=== PATIENT | female | born 1955 | race Caucasian/White ===

== ENCOUNTER → 2016-12-01 | Outpatient (REF) | payer OTHER | LOC: M LAB REF 16:38 | PROVIDERS: ATTEND Nurse Practitioner Women's Health | DX: N39.0 Urinary tract infection, site not specified (principal) ==

== ENCOUNTER 2017-08-05 06:42 | Day surgery (SDC) | payer OTHER ==
[2017-08-05] MEDS: NS 1,000 ML IV (07:00)
[2017-08-05] MEDS ORDERED: LIDOCAINE 2% INJ 100 MG/5 ML SDV (FOR ANES.) As Ordered (07:07)
[2017-08-05] MEDS ORDERED: PROPOFOL 200 MG/20 ML VIAL As Ordered ×2 (07:08)
== END 2017-08-05 08:28 | disposition home or self-care (01) ==
LOC: M OPP 06:42
DX: Z12.11 Encounter for screening for malignant neoplasm of colon (principal); Z80.0 Family history of malignant neoplasm of digestive organs; K57.30 Diverticulosis of large intestine without perforation or abscess without bleeding; K64.8 Other hemorrhoids; I10 Essential (primary) hypertension; E78.5 Hyperlipidemia, unspecified; E03.9 Hypothyroidism, unspecified; K59.00 Constipation, unspecified; K21.9 Gastro-esophageal reflux disease without esophagitis; M19.90 Unspecified osteoarthritis, unspecified site; M54.2 Cervicalgia; M79.7 Fibromyalgia; F32.9 Major depressive disorder, single episode, unspecified; F41.9 Anxiety disorder, unspecified; R51 Headache; R06.83 Snoring; Z79.899 Other long term (current) drug therapy; Z88.8 Allergy status to other drugs, medicaments and biological substances; Z80.3 Family history of malignant neoplasm of breast
CPT/HCPCS: G0105

== ENCOUNTER → 2022-03-15 | Outpatient (CLI) | payer MEDICARE, OTHER ==
[~2022-03-15] MED LIST: ABIL1TAB13 PO; ALLERPLEX; BETAFOOD PO; CYMB60CA4 PO; ESTR62CR PV; GARL1200 PO; GARL3CAP4 PO; GASTREX; GASTREX PO; GASTROGRAFIN SOLUTION 30ML As Ordered ONE; HYDR12CA PO; ISOVUE-370 76% 100ML VIAL As Ordered ONE; LACT20EL PO; LEVO25TA5 PO; LISI10TA22; LISI20TA33 PO; LISI40TA4 PO; METF-838 PO; METO1TAB32 PO; NORV5TAB PO; OMEG100011 PO; OMEP-173 PO; OSTE1TAB2 PO; PROBCAP14 PO; PROBCAP4 PO; RA T500C2 PO; ROSU10TA6 PO; ROSU5TAB5 PO; THERTAB52 PO; VITAD400CA FT; [UNRECOGNIZED DRUG - CODE] PO; [UNRECOGNIZED DRUG - OTHER]; antronex PO
== END ==
LOC: M RAD 12:18
PROVIDERS: ATTEND Specialist
DX: K44.0 Diaphragmatic hernia with obstruction, without gangrene (principal); C91.10 Chronic lymphocytic leukemia of B-cell type not having achieved remission; M51.37 Other intervertebral disc degeneration, lumbosacral region; R16.1 Splenomegaly, not elsewhere classified
CPT/HCPCS: 74177; Q9963; Q9967

== ENCOUNTER 2022-12-10 11:53 | Day surgery (SDC) | payer MEDICARE, OTHER ==
[~2022-12-10] VITALS: Ht 154.9 cm; Wt 84.8 kg
[~2022-12-10 11:53] MED LIST changes: +EZET10TA58 PO; -GASTROGRAFIN SOLUTION 30ML As Ordered ONE; +IMMUPLEX PO; -ISOVUE-370 76% 100ML VIAL As Ordered ONE; +NS 1,000 ML IV ONE; +PRAV40TA2 PO; +THYMEX PO; -VITAD400CA FT; +VITAD400CA PO; +[UNRECOGNIZED DRUG - CODE] PO; +[UNRECOGNIZED DRUG - OTHER] PO
[2022-12-10] MEDS ORDERED: GLYCOPYRROLATE INJ 0.2 MG/ML 2 ML VIAL As Ordered ONE (13:19)
[2022-12-10] MEDS ORDERED: fentaNYL 100 MCG/2 ML INJECTION As Ordered ONE (13:19)
[2022-12-10] MEDS ORDERED: LIDOCAINE 2% 100MG/5ML SDV (FOR ANES.) As Ordered ONE (13:19)
[2022-12-10] MEDS ORDERED: propofoL 200 MG/20 ML VIAL As Ordered ONE ×2 (13:19→13:36)
[2022-12-10 13:50] VITALS: TEMP 97.4
[2022-12-10 14:10] VITALS: BP 144/78; O2SAT 97
== END 2022-12-10 14:16 | disposition home or self-care (01) ==
LOC: M OPP 11:53
PROVIDERS: ATTEND Internal Medicine Gastroenterology
DX: K57.30 Diverticulosis of large intestine without perforation or abscess without bleeding (principal); K64.8 Other hemorrhoids; R19.4 Change in bowel habit; Z80.0 Family history of malignant neoplasm of digestive organs; R12 Heartburn; Z79.02 Long term (current) use of antithrombotics/antiplatelets; Z79.890 Hormone replacement therapy; Z79.899 Other long term (current) drug therapy; Z88.8 Allergy status to other drugs, medicaments and biological substances
CPT/HCPCS: 43239; 45378; 88305; J3010

== ENCOUNTER → 2023-01-05 | Outpatient (CLI) | payer MEDICARE, OTHER ==
[~2023-01-05] MED LIST changes: +GASTROGRAFIN SOLUTION 30ML As Ordered ONE; +ISOVUE-370 76% 100ML VIAL As Ordered ONE; -NS 1,000 ML IV ONE
== END ==
LOC: M RAD 12:06
PROVIDERS: ATTEND Internal Medicine Hematology & Oncology
DX: C91.00 Acute lymphoblastic leukemia not having achieved remission (principal)
CPT/HCPCS: 71260; 74177; Q9963; Q9967

== ENCOUNTER → 2023-01-26 | Outpatient (CLI) | payer MEDICARE, OTHER ==
[~2023-01-26] MED LIST changes: +ASPI81CH33 PO; +BEMP180T PO; -GASTROGRAFIN SOLUTION 30ML As Ordered ONE; -ISOVUE-370 76% 100ML VIAL As Ordered ONE; +LIDOCAINE 1% MDV 20ML VIAL As Ordered ONE; +[UNRECOGNIZED DRUG - CODE]
[2023-01-26 10:40] VITALS: TEMP 97.6
[2023-01-26 11:08] VITALS: BP 148/64; O2SAT 96
== END ==
LOC: M IRPRO 10:21
PROVIDERS: ATTEND Specialist
DX: E04.1 Nontoxic single thyroid nodule (principal)

== ENCOUNTER → 2023-12-12 | Outpatient (CLI) | payer MEDICARE, OTHER ==
[~2023-12-12] MED LIST changes: -LIDOCAINE 1% MDV 20ML VIAL As Ordered ONE; -ROSU10TA6 PO; +ROSU10TA61 PO; +ROSU5TAB40 PO; -ROSU5TAB5 PO; +[UNRECOGNIZED DRUG - CODE] PO
== END ==
LOC: M WHC 10:51
PROVIDERS: ATTEND Dietitian, Registered
DX: Z12.31 Encounter for screening mammogram for malignant neoplasm of breast (principal); R92.323 Mammographic fibroglandular density, bilateral breasts; R59.0 Localized enlarged lymph nodes

== ENCOUNTER → 2024-05-22 | Outpatient (CLI) | payer MEDICARE, OTHER ==
[~2024-05-22] MED LIST changes: +ISOVUE-370 76% 100ML VIAL As Ordered ONE; +OMEP40CA5; -ROSU5TAB40 PO; +ROSU5TAB49 PO
== END ==
LOC: M RAD 11:15
PROVIDERS: ATTEND Specialist
DX: C91.10 Chronic lymphocytic leukemia of B-cell type not having achieved remission (principal)
CPT/HCPCS: 71260; 74177; Q9967

== ENCOUNTER → 2024-06-20 | Outpatient (CLI) | payer MEDICARE, OTHER ==
[~2024-06-20] MED LIST changes: -ISOVUE-370 76% 100ML VIAL As Ordered ONE
[2024-06-20 09:55] LABS: CHOLESTEROL RISK RATIO 4.38 (<5); HDL CHOLESTEROL 36.7 MG/DL (>40); LDL CHOLESTEROL 95.5 MG/DL (<100); NON-HDL-C 124.3 MG/DL
== END ==
LOC: M LAB 08:41
PROVIDERS: ATTEND Physician Assistant
DX: E78.00 Pure hypercholesterolemia, unspecified (principal)

== ENCOUNTER → 2024-10-23 | Outpatient (REF) | payer MEDICARE, OTHER ==
[~2024-10-23] MED LIST changes: +ACAL100T PO; +ALLO100T PO; +B-12100010 PO; +CHLO125TA; +HYDR12.510 PO; -HYDR12CA PO; +LISI40TA10 PO; -LISI40TA4 PO; -PRAV40TA2 PO; +PRAV40TA85 PO; -RA T500C2 PO; +TURM500C10 PO
[2024-10-25 20:52] LABS: HPV APTIMA Not Detected (Not Detected)
== END ==
LOC: M SFHCWAGY 17:58
PROVIDERS: ATTEND Nurse Practitioner Family
DX: Z12.72 Encounter for screening for malignant neoplasm of vagina (principal); Z11.51 Encounter for screening for human papillomavirus (HPV)
CPT/HCPCS: 87624; G0123

== ENCOUNTER → 2024-11-14 | Outpatient (CLI) | payer MEDICARE, OTHER | LOC: M CARPUL 09:06 | PROVIDERS: ATTEND Physician Assistant | DX: I34.0 Nonrheumatic mitral (valve) insufficiency (principal); I36.1 Nonrheumatic tricuspid (valve) insufficiency ==

== ENCOUNTER 2025-01-12 09:18 | Inpatient (IN) | payer MEDICARE, OTHER ==
[~2025-01-12] VITALS: Ht 157.5 cm; Wt 81.6 kg
[~2025-01-12 09:18] MED LIST changes: +ATIV2TAB PO; +CARV12.5 PO; -CHLO125TA; +CHLO125TA PO; +LUNE1TAB8 PO; +PROC5TAB81 PO; -ROSU10TA61 PO; +ROSU10TA90 PO
[2025-01-12 11:00] LABS: OSMOLALITY SERUM 259 MOSM/KG (280-301)
[2025-01-12 11:04] LABS: ALT/SGPT 472 U/L (7.0-40); AST/SGOT 309 U/L (<34); CALCIUM LEVEL 8.6 MG/DL (8.3-10.6); CARBON DIOXIDE LEVEL 24 MMOL/L (20-31); CHLORIDE LEVEL 91 MMOL/L (98-107); CREATININE FOR GFR 0.56 MG/DL (0.55-1.30); GLOMERULAR FILTRATION RATE > 90.0 (>39); MAGNESIUM LEVEL 1.9 MG/DL (1.8-2.4); POTASSIUM SERUM 3.8 MMOL/L (3.5-5.1); SODIUM LEVEL 124 MMOL/L (136-145)
[2025-01-12 11:06] LABS: FREE T4 1.39 NG/DL (0.89-1.76)
[2025-01-12 11:07] LABS: SODIUM,RANDOM URINE 52.0 MMOL/L
[2025-01-12] MEDS ORDERED: ISOVUE-370 76% 100 ML VIAL As Ordered ONE (11:47)
[2025-01-12 11:52] LABS: PLATELET COUNT, AUTOMATED 163 10^3/uL (150-450)
[2025-01-12 12:21] LABS: ATYPICAL LYMPH 5 % (0-5); LYMPHOCYTES 57 % (16-44); MONOCYTES 6 % (0-5); MYELOCYTES 1 % (0-0); NEUTROPHILS 25 % (28-66); PLASMA CELL 2 % (0-0)
[2025-01-12 12:25] LABS: PLATELET ESTIMATE NORMAL (NORMAL)
[2025-01-12] MEDS ORDERED: ACAL100T PO (14:44)
[2025-01-12] MEDS ORDERED: DULO1CAP6 PO (15:05)
[2025-01-12] MEDS ORDERED: TRAZ-252 PO (15:05)
[2025-01-12] MEDS ORDERED: LISI40TA10 PO (15:05)
[2025-01-12] MEDS ORDERED: PROC10TA5 PO (15:05)
[2025-01-12] MEDS ORDERED: HOME MED LIST COMPLETE! XX SCH (15:10)
[2025-01-12] MEDS ORDERED: ONDANSETRON 4MG/2ML VIAL IV PRN (16:40)
[2025-01-12] MEDS ORDERED: MOM 30 ML SUSPENSION UDC PO PRN (17:50)
[2025-01-12] MEDS ORDERED: ACETAMINOPHEN 325 MG TAB PO PRN (17:50)
[2025-01-12] MEDS: NS (Normal Saline) 0.9% 1,000 ML IV SCH (18:43)
[2025-01-12 19:22] LABS: INR 0.98
[2025-01-12 19:26] LABS: C REACTIVE PROTEIN QUANTITATIV < 0.50 MG/DL (<1.0)
[2025-01-12 19:26] LABS: CALCIUM LEVEL 8.6 MG/DL (8.3-10.6); CARBON DIOXIDE LEVEL 24 MMOL/L (20-31); CHLORIDE LEVEL 94 MMOL/L (98-107); CREATININE FOR GFR 0.64 MG/DL (0.55-1.30); GLOMERULAR FILTRATION RATE > 90.0 (>39); POTASSIUM SERUM 3.4 MMOL/L (3.5-5.1); SODIUM LEVEL 128 MMOL/L (136-145)
[2025-01-12 20:06] LABS: HEPATITIS C VIRUS ABY INDEX < 0.02 INDEX (<0.8)
[2025-01-12] MEDS: PIPERACILLIN/TAZOBACTAM SOD 4.5 GM in DEXTROSE 5% (D5W) ADV/MINI-BAG 50 ML IV SCH (20:15)
[2025-01-12 20:37] VITALS: BP 112/53; TEMP 98.2; O2SAT 98
[2025-01-12] MEDS: POTASSIUM CHLORIDE 10MEQ SR TABLET PO ONE (21:11)
[2025-01-12 21:40] LABS: APPEARANCE, URINE CLEAR (CLEAR); BACTERIA, URINE AUTO NEGATIVE (NEGATIVE); BILIRUBIN, URINE AUTO NEGATIVE (NEGATIVE); BLOOD, URINE BLOOD NEGATIVE (NEGATIVE); GLUCOSE, URINE (UA) AUTO NEGATIVE (NEGATIVE); KETONE, URINE AUTO NEGATIVE (NEGATIVE); LEUKOCYTE ESTERASE, URINE AUTO NEGATIVE (NEGATIVE); NITRITE, URINE AUTO NEGATIVE (NEGATIVE); PROTEIN, URINE AUTO NEGATIVE (NEGATIVE); RBC, URINE AUTO 0 /HPF (0-3); SPECIFIC GRAVITY URINE AUTO 1.008 (1.002-1.035); SQUAMOUS EPITHELIAL CELL UR AU 0 /HPF (0-6); UROBILINOGEN, URINE AUTO 4.0 mg/dL (0.0-2.0); WBC, URINE AUTO 1 /HPF (0-3)
[2025-01-13] VITALS (7 sets, daily range): BP systolic 105–146; BP diastolic 51–66; TEMP 97.3–98.3; O2SAT 97–100
[2025-01-13 01:29] LABS: CALCIUM LEVEL 8.4 MG/DL (8.3-10.6); CARBON DIOXIDE LEVEL 26 MMOL/L (20-31); CHLORIDE LEVEL 95 MMOL/L (98-107); CREATININE FOR GFR 0.67 MG/DL (0.55-1.30); GLOMERULAR FILTRATION RATE > 90.0 (>39); POTASSIUM SERUM 4.2 MMOL/L (3.5-5.1); SODIUM LEVEL 128 MMOL/L (136-145)
[2025-01-13 05:03] LABS: PLATELET COUNT, AUTOMATED 170 10^3/uL (150-450)
[2025-01-13 05:34] LABS: ATYPICAL LYMPH 9 % (0-5); METAMYELOCYTES 1 % (0-0)
[2025-01-13] MEDS: LEVOTHYROXINE 25 MCG TABLET (0.025MG) PO SCH (05:34)
[2025-01-13 05:35] LABS: ALT/SGPT 405 U/L (7.0-40); AST/SGOT 233 U/L (<34); CALCIUM LEVEL 8.5 MG/DL (8.3-10.6); CARBON DIOXIDE LEVEL 24 MMOL/L (20-31); CHLORIDE LEVEL 96 MMOL/L (98-107); CREATININE FOR GFR 0.63 MG/DL (0.55-1.30); GLOMERULAR FILTRATION RATE > 90.0 (>39); LYMPHOCYTES 45 % (16-44); MAGNESIUM LEVEL 2.0 MG/DL (1.8-2.4); MONOCYTES 18 % (0-5); NEUTROPHILS 24 % (28-66); POTASSIUM SERUM 4.1 MMOL/L (3.5-5.1); SODIUM LEVEL 129 MMOL/L (136-145)
[2025-01-13 05:36] LABS: PLATELET ESTIMATE NORMAL (NORMAL)
[2025-01-13] MEDS: ENOXAPARIN 40 MG/0.4 ML SYRINGE (J1650 PER 10MG) SC SCH (08:12)
[2025-01-13] MEDS: FILGRASTIM 480 MCG/0.8 ML SYRINGE **SC ADMINISTRATION ONLY SC SCH (12:06)
[2025-01-14 04:00] VITALS: BP 141/63; TEMP 97.6; O2SAT 97
[2025-01-14 05:09] LABS: PLATELET COUNT, AUTOMATED 179 10^3/uL (150-450)
[2025-01-14 05:28] LABS: MONOCYTES 7 % (0-5)
[2025-01-14 05:29] LABS: PLATELET ESTIMATE NORMAL (NORMAL)
[2025-01-14 05:31] LABS: ATYPICAL LYMPH 3 % (0-5)
[2025-01-14 05:32] LABS: ALT/SGPT 368.0 U/L (7.0-40); AST/SGOT 179.0 U/L (<34); CALCIUM LEVEL 8.4 MG/DL (8.3-10.6); CARBON DIOXIDE LEVEL 23.0 MMOL/L (20-31); CHLORIDE LEVEL 100.0 MMOL/L (98-107); CREATININE FOR GFR 0.72 MG/DL (0.55-1.30); GLOMERULAR FILTRATION RATE 89.3 (>39); LYMPHOCYTES 17 % (16-44); MAGNESIUM LEVEL 1.7 MG/DL (1.8-2.4); NEUTROPHILS 68 % (28-66); POTASSIUM SERUM 4.4 MMOL/L (3.5-5.1); SODIUM LEVEL 134.0 MMOL/L (136-145)
[2025-01-14 08:27] VITALS: BP 131/60; TEMP 97.8; O2SAT 98
[2025-01-14] MEDS: LOPERAMIDE 2 MG CAPLET PO PRN (08:30)
[2025-01-14] MEDS: MAG SULF 1GM/100ML (MAG RUN) 1 GM in IV 1 EA IV ONE (09:41)
[2025-01-14 12:00] VITALS: BP 120/63; TEMP 97.1; O2SAT 99
[2025-01-14 16:23] VITALS: BP 139/60; TEMP 98.1; O2SAT 99
[2025-01-14 19:43] VITALS: BP 117/55; TEMP 97.9; O2SAT 94
[2025-01-14 20:31] VITALS: BP 140/64
[2025-01-15 00:47] VITALS: BP 130/64; TEMP 98.1; O2SAT 97
[2025-01-15 04:00] VITALS: BP 132/61; TEMP 97.6; O2SAT 98
[2025-01-15 05:09] LABS: PLATELET COUNT, AUTOMATED 196 10^3/uL (150-450)
[2025-01-15 05:32] LABS: ALT/SGPT 285 U/L (7.0-40); AST/SGOT 96 U/L (<34); CALCIUM LEVEL 8.8 MG/DL (8.3-10.6); CARBON DIOXIDE LEVEL 26 MMOL/L (20-31); CHLORIDE LEVEL 98 MMOL/L (98-107); CREATININE FOR GFR 0.59 MG/DL (0.55-1.30); GLOMERULAR FILTRATION RATE > 90.0 (>39); MAGNESIUM LEVEL 1.8 MG/DL (1.8-2.4); POTASSIUM SERUM 4.4 MMOL/L (3.5-5.1); SODIUM LEVEL 133 MMOL/L (136-145)
[2025-01-15 06:01] LABS: ATYPICAL LYMPH 5 % (0-5); BASOPHILS 1 % (0-1); EOSINOPHILS 1 % (0-3); LYMPHOCYTES 15 % (16-44); MONOCYTES 6 % (0-5); NEUTROPHILS 72 % (28-66)
[2025-01-15 06:02] LABS: PLATELET ESTIMATE NORMAL (NORMAL)
[2025-01-15 08:28] VITALS: BP 134/63; TEMP 97.4; O2SAT 99
[2025-01-15 08:39] VITALS: BP 134/63
[2025-01-15] MEDS ORDERED: LOPE2CAP PO (09:43)
[2025-01-15] MEDS ORDERED: MAGN400T2 PO (09:48)
[2025-01-22] MEDS ORDERED: ZANU160T PO (18:10)
[2025-01-23] MEDS ORDERED: ZANU80CA PO (10:26)
== END 2025-01-15 11:28 | disposition home or self-care (01) | DRG 809 ==
LOC: M ED 09:18 → M ED INP 16:41 → M ICU 20:31
PROVIDERS: ADMIT Student in an Organized Health Care Education/Training Program; ATTEND Student in an Organized Health Care Education/Training Program
PROC: B246ZZZ Ultrasonography of Right and Left Heart (ICD-10-PCS; principal; 2025-01-14)
DX: D70.9 Neutropenia, unspecified (principal); C91.10 Chronic lymphocytic leukemia of B-cell type not having achieved remission; E87.1 Hypo-osmolality and hyponatremia; D84.9 Immunodeficiency, unspecified; R26.89 Other abnormalities of gait and mobility; I10 Essential (primary) hypertension; K21.9 Gastro-esophageal reflux disease without esophagitis; E78.5 Hyperlipidemia, unspecified; E03.9 Hypothyroidism, unspecified; R73.03 Prediabetes; F41.9 Anxiety disorder, unspecified; F32.A Depression, unspecified; G47.00 Insomnia, unspecified; R74.01 Elevation of levels of liver transaminase levels; D64.9 Anemia, unspecified; Z79.890 Hormone replacement therapy; Z79.899 Other long term (current) drug therapy; Z88.8 Allergy status to other drugs, medicaments and biological substances